=== PATIENT | male | born 1970 | race Caucasian/White ===

== ENCOUNTER 2016-06-06 09:00 | Emergency (ER) | payer BC, OTHER ==
[2016-06-06 09:49] VITALS: BP 110/71
--- NOTE | 2016-06-06 09:55 | EDM.PDOC ---
ED HPI Trauma - General Chief Complaint: Upper Extremity Injury/Pain Stated Complaint: Finger crush injury Time Seen by Provider: 06/06/16 09:25 Source: Reports: Patient History Limitations: Reports: No limitations - History of Present Illness INITIAL COMMENTS - FREE TEXT/NARRATIVE: The patient presents from work at [employer] following a crush injury of the left 3rd finger at work. He reports he was lifting a heavy object at work and a co- worker was assisting and he got his left 3rd finger crushed between the object and the bench. He sustained a crush injury and has a moderate subungual hematoma of the left 3rd finger and a small laceration of the ventral 3rd finger that is superficial. He denies other injuries or complaints. Allergies/ADRs: Allergies Sulfa (Sulfonamide Antibiotics) Allergy (Verified 06/06/16 09:21) Rash Home Medications: Ambulatory Orders . [Unable to Verify Home Med List] 06/06/16 [Confirmed 06/06/16] Past Medical History - Past Health History Medical/Surgical History: Denies Medical/Surgical History Review of Systems - Review of Systems Review Of Systems: ROS reveals no pertinent complaints other than HPI. Trauma Exam - Physical Exam Exam: See Below Exam Limited By: No limitations General Appearance: Reports: alert, WD/WN, no apparent distress Head: Reports: atraumatic, normocephalic Eyes: bilateral eye: EOMI, normal inspection, PERRL Ears: Reports: normal external exam, normal canal, hearing grossly normal, normal TMs Nose: Reports: normal inspection, normal mucousa, no blood Throat/Mouth: Reports: Normal inspection, Normal lips, Normal teeth, Normal gums , Normal oropharynx, Normal voice, No airway compromise Neck: Reports: non-tender, full range of motion, normal alignment, normal inspection Respiratory Exam: Reports: no respiratory distress, lungs clear, normal breath sounds, no accessory muscle use, chest non-tender Cardiovascular: Reports: normal peripheral pulses, regular rate, rhythm, no edema, no gallop, no murmur, no rub GI/Abdominal: Reports: normal bowel sounds, soft, non tender, no organomegaly Back: Reports: full range of motion, normal inspection. Denies: CVA tenderness (R), CVA tenderness (L), paraspinal tenderness, vertebral tenderness Extremities: Reports: normal range of motion, no pedal edema, other (There is a moderate subungual hematoma of the left 3rd index finger extending chcf up the nailbed. There is no significant swelling or tension on the nail and it is soft and compressible. There is a small 0.5 cm superficial laceration with no contamination that is clean and approximates well. There is moderate pain on deep palpation of the finger but no visible or palpable deformity. ROM is normal. Sensation is normal. Capillary refill is < 2 seconds.) Neurologic: Reports: accounts specialist II-XII nml as tested, no motor/sensory deficits, alert , normal mood/affect, oriented x 3 Skin: Reports: Normal color, Warm/dry Course - Orders/Labs/Meds Orders: Active Orders 24 hr Category Date Time Status Fingers Third Digit Lt F2 [CR] Stat Exams 06/06/16 09:46 Ordered Departure - Departure Time of Disposition: 09:57 Disposition: Home, Self-Care 01 Clinical Impression: Subungual hematoma of left middle finger, Crush injury Laceration of index finger of left hand without complication Qualifiers: Encounter type: initial encounter Qualified Code(s): S61.211A - Laceration without foreign body of left index finger without damage to nail, initial encounter Forms: ED Department Discharge - My Orders Last 24 Hours: My Active Orders 06/06/16 09:46 Fingers Third Digit Lt F2 [CR] Stat - Assessment/Plan Last 24 Hours: My Active Orders 06/06/16 09:46 Fingers Third Digit Lt F2 [CR] Stat Assessment:: Crush injury on left 3rd finger Subungual hematoma of left 3rd finger Superficial laceration of left 3rd finger Plan: 1. Laceration cleansed with betadine and alcohol wipes. 2. Laceration closed with Dermabond. 3. Patient instructed may shower, bathe, swim as usual and leave Dermabond in place. 4. If Dermabond has not fallen off in 10 days, patient instructed he may peel off and remove Dermabond. 5. Excuse from work 06/06/2016, may return 06/07/2016 with 5 pound lifting restriction with left hand for 1 week. 6. Return to ER if finger is pale, blue, cold, numb, or other emergent concerns.
[2016-06-06] MEDS ORDERED: Diphtheria,Pertussis(Acell),Tetanus Vaccine 0.5 ML SDV IM ONE (10:12)
== END 2016-06-06 10:50 | disposition home or self-care (01) ==
LOC: LL.ED 09:00
DX: S61.211A Laceration without foreign body of left index finger without damage to nail, initial encounter (principal); S60.032A Contusion of left middle finger without damage to nail, initial encounter; Z88.2 Allergy status to sulfonamides; W23.1XXA Caught, crushed, jammed, or pinched between stationary objects, initial encounter
CPT/HCPCS: 12001; 73140-F2; 90471; 90715; 99282; 99283

== ENCOUNTER 2023-06-08 19:58 | Emergency (ER) | payer BC, OTHER ==
[2023-06-08] MEDS: Lidocaine 1% 5 ML VIAL INJECT ONE ×2 (20:23→20:51)
[2023-06-08] MEDS: Bacitracin Oint 1 GM U/D Packet TOP ONE (21:26)
[2023-06-08] MEDS: Diphtheria,Pertussis(Acell),Tetanus Vaccine 0.5 ML Syringe IM ONE (21:30)
[2023-06-08 22:05] VITALS: BP 140/85; PULSE 61
== END 2023-06-08 21:47 | disposition home or self-care (01) ==
LOC: LL.ED 19:58
DX: S61.012A Laceration without foreign body of left thumb without damage to nail, initial encounter (principal); I10 Essential (primary) hypertension; K21.9 Gastro-esophageal reflux disease without esophagitis; Z88.8 Allergy status to other drugs, medicaments and biological substances; Z88.2 Allergy status to sulfonamides; Z23 Encounter for immunization; Z79.899 Other long term (current) drug therapy; W26.8XXA Contact with other sharp object(s), not elsewhere classified, initial encounter
CPT/HCPCS: 12002; 90471; 90715; 99282-25; 99283; J3490